=== PATIENT | male | born 1990 ===

== ENCOUNTER 2016-10-30 14:53 | Emergency (ER) | payer SELFPAY ==
--- NOTE | 2016-10-30 14:57 | EDPHY ---
HPI/HX/ROS/PE/MDM Narrative: CHIEF COMPLAINT: Heroin overdose HPI: This patient presents via EMS. Per EMS, patient overdosed on heroin prior to arrival. His girlfriend performed CPR on him for an unknown amount of time. On EMS arrival, patient was breathing sporadically but had a pulse. With some mild stimulation, patient awoke. He refused transport, IV and any intervention, but was transported to the ED anyway. Note: Prior to my exam or interaction with the patient, patient eloped from the ED. I witnessed a [employer] officer speaking to him in his room, but am not aware that patient is under any kind of legal hold. General Initial Vital Signs: Initial Vital Signs Heart Rate 87 10/30/16 15:06 Respiratory Rate 18 10/30/16 15:06 Blood Pressure 132/87 H 10/30/16 15:06 O2 Sat (%) 80 L 10/30/16 15:06 O2 Delivery Mode Room Air O2 (L/minute) 3 Allergies/Adverse Reactions: No Known Allergies Allergy (Unverified 10/30/16 15:06) Home Medications: Medication Instructions Recorded NK [No Known Home Meds] 10/30/16 Departure - Departure Disposition: Left Without Being Seen Referrals: Patient,NotPresent [Primary Care Provider] - As per Instructions Report Scribed for: Krzysztof Hernandez Report Scribed by: Opal Larios Date of Report: 10/30/16 Time of Report: 14:57 Physician Review and Approval Statement: Portions of this note were transcribed by an ED scribe. I personally performed the history, physical exam, and medical decision making; and confirm the accuracy of the information in the transcribed note.
[2016-10-30 15:12] VITALS: BP 132/87; PULSE 87; RESP 18
[2016-10-30 15:17] VITALS: O2SAT 97
== END 2016-10-30 15:15 | disposition left against medical advice (07) ==
DX: Z53.21 Procedure and treatment not carried out due to patient leaving prior to being seen by health care provider (principal)